=== PATIENT | female | born 1995 | race Two or more races ===

== ENCOUNTER 2020-02-07 17:50 | Emergency (ER) | payer OTHER ==
[~2020-02-07] VITALS: Ht 154.9 cm; Wt 40.8 kg
== END 2020-02-07 20:02 | disposition home or self-care (01) ==
LOC: ER 17:50
DX: R50.9 Fever, unspecified (principal)

== ENCOUNTER 2020-05-09 17:36 | Outpatient (CLI) | payer OTHER | END 2020-05-09 17:37 | disposition home or self-care (01) | LOC: PPH VACUNA 17:36 | DX: Z23 Encounter for immunization (principal) ==

== ENCOUNTER 2020-10-21 10:10 | Outpatient (CLI) | payer OTHER | END 2020-10-21 10:21 | disposition home or self-care (01) | LOC: RAD 10:10 → MRI 10:15 → RAD 10:21 → MAMO-SONO 11:00 | PROVIDERS: ATTEND Family Medicine | DX: D24.1 Benign neoplasm of right breast (principal); D24.2 Benign neoplasm of left breast; N64.59 Other signs and symptoms in breast; M23.349 Other meniscus derangements, anterior horn of lateral meniscus, unspecified knee; N64.4 Mastodynia | CPT/HCPCS: 73721 ==

== ENCOUNTER → 2020-10-27 06:24 | Outpatient (CLI) | payer OTHER | END | disposition home or self-care (01) | LOC: LAB 06:24 | PROVIDERS: ATTEND Obstetrics & Gynecology | DX: E03.8 Other specified hypothyroidism (principal); N92.5 Other specified irregular menstruation; D50.8 Other iron deficiency anemias; I10 Essential (primary) hypertension; E55.9 Vitamin D deficiency, unspecified ==

== ENCOUNTER → 2021-03-19 | Outpatient (CLI) | payer OTHER | END | disposition home or self-care (01) | LOC: LAB 11:36 | PROVIDERS: ATTEND Emergency Medicine Pediatric Emergency Medicine | DX: Z03.818 Encounter for observation for suspected exposure to other biological agents ruled out (principal) ==

== ENCOUNTER 2021-05-04 06:23 | Outpatient (CLI) | payer OTHER | END 2021-05-04 06:24 | disposition home or self-care (01) | LOC: LAB 06:23 | DX: Z20.822 Contact with and (suspected) exposure to COVID-19 (principal) ==

== ENCOUNTER → 2021-05-13 | Emergency (ER) | payer OTHER ==
[~2021-05-13] VITALS: Ht 154.9 cm; Wt 42.2 kg
== END | disposition home or self-care (01) ==
LOC: ER 12:10
DX: S80.02XA Contusion of left knee, initial encounter (principal); W18.39XA Other fall on same level, initial encounter; Y93.89 Activity, other specified; Y92.238 Other place in hospital as the place of occurrence of the external cause

== ENCOUNTER 2021-05-18 08:00 | Outpatient (CLI) | payer OTHER | END 2021-05-18 08:30 | disposition home or self-care (01) | LOC: PPH VACUNA 08:00 | PROVIDERS: ATTEND Emergency Medicine Pediatric Emergency Medicine | DX: Z23 Encounter for immunization (principal) ==

== ENCOUNTER 2021-06-22 08:00 | Outpatient (CLI) | payer OTHER | END 2021-06-22 08:30 | disposition home or self-care (01) | LOC: PPH VACUNA 08:00 | PROVIDERS: ATTEND Emergency Medicine Pediatric Emergency Medicine | DX: Z23 Encounter for immunization (principal) ==

== ENCOUNTER 2021-09-21 06:45 | Outpatient (CLI) | payer OTHER | END 2021-09-21 06:53 | disposition home or self-care (01) | LOC: LAB 06:45 | DX: D50.8 Other iron deficiency anemias (principal); E55.9 Vitamin D deficiency, unspecified; I10 Essential (primary) hypertension; E03.8 Other specified hypothyroidism; N92.5 Other specified irregular menstruation ==

== ENCOUNTER 2021-09-21 07:19 | Outpatient (CLI) | payer OTHER | END 2021-09-21 07:21 | disposition home or self-care (01) | LOC: SONOGRAMA 07:19 | PROVIDERS: ATTEND Obstetrics & Gynecology | DX: N64.4 Mastodynia (principal) ==

== ENCOUNTER 2023-10-15 21:19 | Emergency (ER) | payer OTHER ==
[~2023-10-15] VITALS: Ht 154.9 cm; Wt 45.8 kg
[2023-10-15] MEDS ORDERED: PRENA1 TRUE CO1 EACH (21:35)
[2023-10-15 22:22] LABS: URINE APPEARANCE Clear; URINE BILIRRUBIN Negative (NEGATIVE); URINE BLOOD Trace; URINE COLOR Yellow; URINE GLUCOSE Negative (NEGATIVE); URINE LEUKOCYTE Negative; URINE NITRATE Negative; URINE PROTEIN Negative (NEGATIVE); URINE UROBILINOGEN 0.2 E.U./dl
[2023-10-15 22:25] LABS: URINE BACTERIA 303.3 uL (0.0-1933); URINE EPITHELIAL CELLS 7.1 uL (0.0-38.8); URINE RBC 3.8 uL (0.0-20.8); URINE WBC 3.8 uL (0.0-23.2)
[2023-10-15 22:27] LABS: HEMATOCRIT 40.3 % (36.0-45.00); HEMOGLOBIN 13.8 g/dL (12.0-15.00); MEAN CELL VOLUME 87.9 fL (80.00-100.00); MEAN CORPUSCULAR HEMOGLOBIN 30.1 pg (27.00-32.0); MEAN CORPUSCULAR HGB CONC 34.2 g/dl (32.0-36.0); PLATELET COUNT 305 K/uL (150-450); RED BLOOD COUNT 4.58 M/uL (4.00-6.00)
[2023-10-15 23:10] LABS: CALCIUM 10.1 mg/dL (8.5-10.1); CREATININE SERUM 0.56 mg/dL (0.55-1.02); GFR 128.9; POTASSIUM 3.36 mEq/L (3.5-5.1)
== END 2023-10-16 00:28 | disposition home or self-care (01) ==
LOC: ER 21:19
PROVIDERS: Emergency Medicine
DX: O20.8 Other hemorrhage in early pregnancy (principal); Z3A.09 9 weeks gestation of pregnancy; Z88.1 Allergy status to other antibiotic agents

== ENCOUNTER 2023-10-25 23:18 | Emergency (ER) | payer OTHER ==
[~2023-10-25] VITALS: Ht 154.9 cm; Wt 45.8 kg
[~2023-10-25 23:18] MED LIST: PRENA1 TRUE CO1 EACH
[2023-10-26] MEDS ORDERED: FAMOTIDINE/PF 20 MG/2 ML VIAL IV PUSH STA (01:30)
[2023-10-26] MEDS ORDERED: RINGERS SOLUTION,LACTATED 1,000 ML IV ONE (01:30)
[2023-10-26] MEDS ORDERED: ONDANSETRON HCL 2 MG/ML VIAL IV STA (01:31)
[2023-10-26 02:12] LABS: HEMATOCRIT 36.9 % (36.0-45.00); HEMOGLOBIN 12.7 g/dL (12.0-15.00); MEAN CELL VOLUME 89.6 fL (80.00-100.00); MEAN CORPUSCULAR HEMOGLOBIN 30.8 pg (27.00-32.0); MEAN CORPUSCULAR HGB CONC 34.4 g/dl (32.0-36.0); PLATELET COUNT 251 K/uL (150-450); RED BLOOD COUNT 4.12 M/uL (4.00-6.00); RED CELL DISTRIBUTION WIDTH 13.4 % (11.5-14.5)
[2023-10-26 02:42] LABS: PH,URINE 7.5 (5.0-8.0); URINE APPEARANCE Clear; URINE BILIRRUBIN Negative (NEGATIVE); URINE BLOOD Small; URINE COLOR Yellow; URINE GLUCOSE Negative (NEGATIVE); URINE LEUKOCYTE Trace; URINE NITRATE Negative; URINE PROTEIN Negative (NEGATIVE); URINE UROBILINOGEN 0.2 E.U./dl
[2023-10-26 02:45] LABS: INR 0.98; PARTIAL THROMBOPLASTIN TIME 26.8 SECONDS (22.0-34.0); PROTHROMBIN TIME 10.3 SECONDS (9.0-11.5)
[2023-10-26 02:45] LABS: URINE BACTERIA 594.4 uL (0.0-1933); URINE EPITHELIAL CELLS 9.5 uL (0.0-38.8); URINE RBC 9.3 uL (0.0-20.8); URINE WBC 8.1 uL (0.0-23.2)
[2023-10-26 03:01] LABS: CALCIUM 9.4 mg/dL (8.5-10.1); CREATININE SERUM 0.39 mg/dL (0.55-1.02); GFR 195.69; POTASSIUM 3.95 mEq/L (3.5-5.1)
== END 2023-10-26 12:20 | disposition home or self-care (01) ==
LOC: ER 23:18
PROVIDERS: General Practice
DX: O20.9 Hemorrhage in early pregnancy, unspecified (principal); O21.9 Vomiting of pregnancy, unspecified; Z3A.11 11 weeks gestation of pregnancy; Z88.8 Allergy status to other drugs, medicaments and biological substances

== ENCOUNTER 2024-04-20 11:34 | Outpatient (CLI) | payer OTHER | END 2024-04-20 11:35 | disposition home or self-care (01) | LOC: NUCLEAR 11:34 | PROVIDERS: ATTEND Obstetrics & Gynecology | DX: I82.90 Acute embolism and thrombosis of unspecified vein (principal) ==

== ENCOUNTER 2024-05-07 13:00 | Inpatient (IN) | payer OTHER ==
[~2024-05-07] VITALS: Ht 154.9 cm; Wt 57.2 kg
[2024-05-08 13:28] VITALS: BP 100/70
[2024-05-08] MEDS ORDERED: RINGERS SOLUTION,LACTATED 1,000 ML IV SCH (14:30)
[2024-05-08] MEDS ORDERED: MORPHINE SULFATE 4 MG/ML CARTRIDGE IV PRN (14:30)
[2024-05-08 15:30] LABS: HEMATOCRIT 37.1 % (36.0-45.00); HEMOGLOBIN 12.6 g/dL (12.0-15.00); MEAN CELL VOLUME 91.3 fL (80.00-100.00); PLATELET COUNT 218 K/uL (150-450); RED BLOOD COUNT 4.06 M/uL (4.00-6.00); RED CELL DISTRIBUTION WIDTH 13.9 % (11.5-14.5)
[2024-05-08 15:38] VITALS: BP 120/79
[2024-05-08 15:52] LABS: INR 0.94; PARTIAL THROMBOPLASTIN TIME 30.5 SECONDS (22.0-34.0); PROTHROMBIN TIME 10.3 SECONDS (9.0-11.5)
[2024-05-08 15:59] LABS: ALBUMIN 2.5 gm/dL (3.4-5.0); BILIRUBIN TOTAL 0.26 mg/dL (0.3-1.2); CALCIUM 9.4 mg/dL (8.5-10.1); CREATININE SERUM 0.47 mg/dL (0.55-1.02); GFR 156.66; GLOBULINA 3.5 G/DL (2.4-3.5); POTASSIUM 4.18 mEq/L (3.5-5.1)
[2024-05-08 20:43] VITALS: BP 116/67
[2024-05-09] VITALS (7 sets, daily range): BP systolic 116–139; BP diastolic 67–80; O2SAT 99
[2024-05-09] MEDS ORDERED: OXYTOCIN 500 ML IV ONE (08:15)
[2024-05-09] MEDS ORDERED: OXYTOCIN 20 UNITS/1000ML RL PIGGYBAG IV ONE (12:41)
[2024-05-09] MEDS ORDERED: ERYTHROMYCIN BASE OPHT 1GM EACH TUBE OP ONE ×2 (12:41→17:15)
[2024-05-09] MEDS ORDERED: CHLORHEXIDINE GLUCONATE 120 ML BOTTLE TOP ONE (12:41)
[2024-05-09] MEDS ORDERED: LIDOCAINE HCL 1% 10ML VIAL ONE (12:42)
[2024-05-09] MEDS ORDERED: OXYTOCIN 10 UNITS/ML VIAL ONE (17:15)
[2024-05-09] MEDS ORDERED: CEFAZOLIN SODIUM 1,000 MG VIAL ONE (17:21)
[2024-05-09] MEDS ORDERED: MORPHINE SULFATE 4 MG/ML CARTRIDGE IV PRN (17:30)
[2024-05-09] MEDS ORDERED: OXYTOCIN 1,000 ML IV ONE (17:30)
[2024-05-09] MEDS ORDERED: RINGERS SOLUTION,LACTATED 1,000 ML IV SCH (17:30)
[2024-05-09] MEDS ORDERED: CEFAZOLIN SODIUM 1,000 MG VIAL IV NR (17:30)
[2024-05-09] MEDS ORDERED: ONDANSETRON HCL 2 MG/ML VIAL IV SCH (18:00)
[2024-05-09] MEDS ORDERED: ACETAMINOPHEN 500 MG GEL..CAP PO SCH (18:00)
[2024-05-09] MEDS ORDERED: KETOROLAC TROMETHAMINE 30 MG VIAL IV SCH (18:00)
[2024-05-10] MEDS ORDERED: GABAPENTIN 300 MG CAPSULE PO SCH (01:00)
[2024-05-10] MEDS ORDERED: SIMETHICONE 125 MG CAPSULE PO SCH (01:00)
[2024-05-10 02:30] VITALS: BP 116/72
[2024-05-10 06:33] LABS: HEMATOCRIT 32.9 % (36.0-45.00); HEMOGLOBIN 11.3 g/dL (12.0-15.00); MEAN CELL VOLUME 90.7 fL (80.00-100.00); MEAN CORPUSCULAR HEMOGLOBIN 31.2 pg (27.00-32.0); MEAN CORPUSCULAR HGB CONC 34.4 g/dl (32.0-36.0); PLATELET COUNT 194 K/uL (150-450); RED BLOOD COUNT 3.62 M/uL (4.00-6.00); RED CELL DISTRIBUTION WIDTH 13.9 % (11.5-14.5)
[2024-05-10 08:00] VITALS: BP 113/70
[2024-05-10] MEDS ORDERED: KETOROLAC TROMETHAMINE 10 MG TABLET PO SCH (08:00)
[2024-05-10] MEDS ORDERED: OxyCODONE HCL/APAP UD (PERCOCET) PO PRN (08:15)
[2024-05-10] MEDS ORDERED: DOCUSATE SODIUM 100MG CAP PO SCH (09:00)
[2024-05-10 16:00] VITALS: BP 125/76
[2024-05-11] VITALS: BP 118/78
[2024-05-11 08:00] VITALS: BP 112/78
== END 2024-05-11 17:15 | disposition home or self-care (01) | DRG 788 ==
LOC: LDR 05-08 14:00 → OB/GYN 05-08 14:00 → LDR 05-08 14:57 → OB/GYN 05-09 17:11
PROVIDERS: ADMIT Obstetrics & Gynecology; ATTEND Obstetrics & Gynecology
PROC: 10D00Z1 Extraction of Products of Conception, Low, Open Approach (ICD-10-PCS; principal; 2024-05-08)
PROC: 4A1HXCZ Monitoring of Products of Conception, Cardiac Rate, External Approach (ICD-10-PCS; 2024-05-08)
DX: O82 Encounter for cesarean delivery without indication (principal); O62.1 Secondary uterine inertia; Z3A.39 39 weeks gestation of pregnancy; Z37.0 Single live birth; Z20.822 Contact with and (suspected) exposure to COVID-19

== ENCOUNTER 2024-05-07 13:26 | Outpatient (CLI) | payer OTHER | END 2024-05-07 14:50 | disposition home or self-care (01) | LOC: NST 13:26 | PROVIDERS: ATTEND Obstetrics & Gynecology | DX: Z34.83 Encounter for supervision of other normal pregnancy, third trimester (principal) ==

== ENCOUNTER 2024-06-08 12:17 | Outpatient (CLI) | payer OTHER | END 2024-06-08 12:36 | disposition home or self-care (01) | LOC: SONOGRAMA 12:17 | PROVIDERS: ATTEND Obstetrics & Gynecology Gynecology | DX: Z39.1 Encounter for care and examination of lactating mother (principal) ==